=== PATIENT | female | born 2000 | race Two or more races ===

== ENCOUNTER 2023-03-20 10:40 | Emergency (ER) | payer OTHER ==
[~2023-03-20] VITALS: Ht 147.3 cm; Wt 101.2 kg
[2023-03-20 12:08] LABS: HEMATOCRIT 41.1 % (36.0-45.00); HEMOGLOBIN 13.4 g/dL (12.0-15.00); MEAN CORPUSCULAR HEMOGLOBIN 29.4 pg (27.00-32.0); MEAN CORPUSCULAR HGB CONC 32.6 g/dl (32.0-36.0); PLATELET COUNT 225 K/uL (150-450); RED BLOOD COUNT 4.57 M/uL (4.00-6.00); RED CELL DISTRIBUTION WIDTH 15.1 % (11.5-14.5)
[2023-03-20 12:35] LABS: ALBUMIN 3.3 gm/dL (3.4-5.0); BILIRUBIN TOTAL 0.31 mg/dL (0.3-1.2); CALCIUM 9.3 mg/dL (8.5-10.1); CREATININE SERUM 0.74 mg/dL (0.55-1.02); GFR 98.14; GLOBULINA 4.3 G/DL (2.4-3.5); POTASSIUM 4.03 mEq/L (3.5-5.1); TOTAL PROTEIN 7.6 gm/dL (6.4-8.2)
== END 2023-03-20 13:59 | disposition home or self-care (01) ==
LOC: ER 10:40
PROVIDERS: General Practice
DX: K80.20 Calculus of gallbladder without cholecystitis without obstruction (principal)

== ENCOUNTER 2023-05-14 18:05 | Emergency (ER) | payer OTHER ==
[~2023-05-14] VITALS: Ht 147.3 cm; Wt 99.8 kg
[2023-05-14 19:57] LABS: HEMATOCRIT 39.5 % (36.0-45.00); HEMOGLOBIN 13.6 g/dL (12.0-15.00); MEAN CORPUSCULAR HEMOGLOBIN 31.3 pg (27.00-32.0); MEAN CORPUSCULAR HGB CONC 34.4 g/dl (32.0-36.0); PLATELET COUNT 231 K/uL (150-450); RED BLOOD COUNT 4.34 M/uL (4.00-6.00); RED CELL DISTRIBUTION WIDTH 14.6 % (11.5-14.5)
[2023-05-14 21:22] LABS: PH,URINE 5.5 (5.0-8.0); URINE APPEARANCE Cloudy; URINE BILIRRUBIN Negative (NEGATIVE); URINE BLOOD Large; URINE COLOR Orange; URINE GLUCOSE Negative (NEGATIVE); URINE LEUKOCYTE Trace; URINE NITRATE Negative
[2023-05-14 21:23] LABS: URINE EPITHELIAL CELLS 26.4 uL (0.0-38.8); URINE RBC 5716.4 uL (0.0-20.8); URINE WBC 54.8 uL (0.0-23.2)
[2023-05-14 21:24] LABS: URINE PROTEIN 100 (NEGATIVE)
[2023-05-14] MEDS ORDERED: BACTRIM DS TAB1 EACH PO (21:42)
== END 2023-05-14 21:55 | disposition home or self-care (01) ==
LOC: ER 18:06
PROVIDERS: Nurse Practitioner Family
DX: N39.0 Urinary tract infection, site not specified (principal); R10.2 Pelvic and perineal pain

== ENCOUNTER 2023-07-26 21:14 | Emergency (ER) | payer OTHER ==
[~2023-07-26] VITALS: Ht 147.3 cm; Wt 98.4 kg
[~2023-07-26 21:14] MED LIST: BACTRIM DS TAB1 EACH PO
[2023-07-26] MEDS ORDERED: 0.9 % SODIUM CHLORIDE 1,000 ML IV ONE (23:00)
[2023-07-26] MEDS ORDERED: HYOSCYAMINE SULFATE 0.125 MG TAB.SUBL SL ONE (23:00)
[2023-07-26] MEDS ORDERED: FAMOTIDINE/PF 20 MG/2 ML VIAL IV PUSH ONE (23:00)
[2023-07-26] MEDS ORDERED: KETOROLAC TROMETHAMINE 30 MG VIAL IV ONE (23:00)
[2023-07-27 00:16] LABS: PH,URINE 5.5 (5.0-8.0); URINE APPEARANCE Clear; URINE BILIRRUBIN Small (NEGATIVE); URINE BLOOD Negative; URINE COLOR Dark Yellow; URINE GLUCOSE Negative (NEGATIVE); URINE LEUKOCYTE Negative; URINE NITRATE Negative; URINE PROTEIN 30 (NEGATIVE); URINE UROBILINOGEN 0.2 E.U./dl
[2023-07-27 00:17] LABS: URINE BACTERIA 41.5 uL (0.0-1933); URINE EPITHELIAL CELLS 15.2 uL (0.0-38.8); URINE RBC 11.2 uL (0.0-20.8)
[2023-07-27 00:54] LABS: HEMOGLOBIN 13.9 g/dL (12.0-15.00); MEAN CELL VOLUME 87.1 fL (80.00-100.00); MEAN CORPUSCULAR HEMOGLOBIN 29.4 pg (27.00-32.0); MEAN CORPUSCULAR HGB CONC 33.8 g/dl (32.0-36.0); PLATELET COUNT 177 K/uL (150-450); RED BLOOD COUNT 4.71 M/uL (4.00-6.00); RED CELL DISTRIBUTION WIDTH 14.5 % (11.5-14.5)
[2023-07-27 01:25] LABS: ALBUMIN 3.8 gm/dL (3.4-5.0); BILIRUBIN TOTAL 0.5 mg/dL (0.3-1.2); CALCIUM 8.9 mg/dL (8.5-10.1); CREATININE SERUM 0.65 mg/dL (0.55-1.02); GFR 113.98; GLOBULINA 3.9 G/DL (2.4-3.5); POTASSIUM 4.13 mEq/L (3.5-5.1); TOTAL PROTEIN 7.7 gm/dL (6.4-8.2)
== END 2023-07-27 05:19 | disposition home or self-care (01) ==
LOC: ER 21:14
PROVIDERS: General Practice
DX: K29.70 Gastritis, unspecified, without bleeding (principal); K80.20 Calculus of gallbladder without cholecystitis without obstruction

== ENCOUNTER → 2024-01-12 10:29 | Outpatient (CLI) | payer OTHER ==
[~2024-01-12 10:29] MED LIST changes: +IVERMECTIN3 MG PO; +OSEL75CA PO; +TUSNEL LIQUID178 ML PO
== END | disposition home or self-care (01) ==
LOC: PRENATAL 10:29
PROVIDERS: ATTEND Obstetrics & Gynecology Maternal & Fetal Medicine
DX: O35.9XX0 Maternal care for (suspected) fetal abnormality and damage, unspecified, not applicable or unspecified (principal); O35.3XX0 Maternal care for (suspected) damage to fetus from viral disease in mother, not applicable or unspecified; O44.02 Complete placenta previa NOS or without hemorrhage, second trimester; O99.213 Obesity complicating pregnancy, third trimester; Z3A.24 24 weeks gestation of pregnancy

== ENCOUNTER 2024-03-09 12:23 | Outpatient (CLI) | payer OTHER ==
[~2024-03-09] VITALS: Ht 147.3 cm; Wt 102.5 kg
[2024-03-09 11:22] VITALS: BP 116/77
[2024-03-09] MEDS ORDERED: PRENATAL CAPLE1 EAC1 PO (12:25)
[2024-03-09] MEDS ORDERED: FOLIC ACID20 MG PO (12:25)
[2024-03-09 13:03] LABS: PH,URINE 6.5 (5.0-8.0); URINE APPEARANCE Clear; URINE BILIRRUBIN Negative (NEGATIVE); URINE BLOOD Negative; URINE COLOR Yellow; URINE GLUCOSE Negative (NEGATIVE); URINE KETONE Negative (NEGATIVE); URINE LEUKOCYTE Negative; URINE NITRATE Negative; URINE PROTEIN Negative (NEGATIVE); URINE UROBILINOGEN 0.2 E.U./dl
[2024-03-09 13:07] LABS: URINE BACTERIA 3004.9 uL (0.0-1933); URINE EPITHELIAL CELLS 53.3 uL (0.0-38.8); URINE RBC 20.3 uL (0.0-20.8); URINE WBC 25.5 uL (0.0-23.2)
[2024-03-09 13:18] LABS: HEMATOCRIT 35.5 % (36.0-45.00); MEAN CELL VOLUME 86.7 fL (80.00-100.00); MEAN CORPUSCULAR HEMOGLOBIN 29.4 pg (27.00-32.0); MEAN CORPUSCULAR HGB CONC 33.9 g/dl (32.0-36.0); PLATELET COUNT 209 K/uL (150-450); RED BLOOD COUNT 4.09 M/uL (4.00-6.00); RED CELL DISTRIBUTION WIDTH 14.6 % (11.5-14.5)
[2024-03-09 13:20] LABS: URINE CAST 0.45 uL (0.0-1.40)
[2024-03-09 13:24] LABS: INR 0.99; PARTIAL THROMBOPLASTIN TIME 29.1 SECONDS (22.0-34.0); PROTHROMBIN TIME 10.8 SECONDS (9.0-11.5)
[2024-03-09] MEDS ORDERED: FAMOTIDINE/PF 20 MG/2 ML VIAL IV ONE (14:30)
[2024-03-09] MEDS ORDERED: RINGERS SOLUTION,LACTATED 1,000 ML IV SCH (15:15)
[2024-03-09 16:00] VITALS: BP 92/59
== END 2024-03-09 17:45 | disposition left against medical advice (07) ==
LOC: OBS/DEL 12:23
PROVIDERS: ATTEND Specialist
DX: O26.893 Other specified pregnancy related conditions, third trimester (principal); Z3A.33 33 weeks gestation of pregnancy; K29.60 Other gastritis without bleeding

== ENCOUNTER 2024-04-18 15:00 | Inpatient (IN) | payer OTHER ==
[~2024-04-18] VITALS: Ht 147.3 cm; Wt 3.2 kg
[~2024-04-18 15:00] MED LIST changes: +FOLIC ACID20 MG PO; +PRENATAL CAPLE1 EAC1 PO
[2024-04-27 05:29] VITALS: BP 126/70
[2024-04-27] MEDS ORDERED: PRENATAL TABLE1 EAC1 PO (06:10)
[2024-04-27] MEDS ORDERED: RINGERS SOLUTION,LACTATED 1,000 ML IV SCH (06:15)
[2024-04-27] MEDS ORDERED: OXYTOCIN 500 ML IV SCH (06:45)
[2024-04-27 06:55] LABS: HEMATOCRIT 35.6 % (36.0-45.00); MEAN CELL VOLUME 84.5 fL (80.00-100.00); MEAN CORPUSCULAR HEMOGLOBIN 28.4 pg (27.00-32.0); MEAN CORPUSCULAR HGB CONC 33.7 g/dl (32.0-36.0); PH,URINE 6.5 (5.0-8.0); PLATELET COUNT 234 K/uL (150-450); RED BLOOD COUNT 4.21 M/uL (4.00-6.00); RED CELL DISTRIBUTION WIDTH 15.2 % (11.5-14.5); URINE APPEARANCE Clear; URINE BILIRRUBIN Negative (NEGATIVE); URINE BLOOD Negative; URINE COLOR Yellow; URINE GLUCOSE Negative (NEGATIVE); URINE KETONE Negative (NEGATIVE); URINE LEUKOCYTE Negative; URINE NITRATE Negative; URINE PROTEIN Negative (NEGATIVE); URINE UROBILINOGEN 0.2 E.U./dl
[2024-04-27 06:57] LABS: URINE BACTERIA 325.5 uL (0.0-1933); URINE EPITHELIAL CELLS 13.6 uL (0.0-38.8); URINE WBC 10.7 uL (0.0-23.2)
[2024-04-27 07:02] LABS: URINE RBC 0.8 uL (0.0-20.8)
[2024-04-27 07:03] LABS: INR 0.96; PARTIAL THROMBOPLASTIN TIME 27.9 SECONDS (22.0-34.0); PROTHROMBIN TIME 10.5 SECONDS (9.0-11.5)
[2024-04-27 07:28] LABS: ALBUMIN 2.5 gm/dL (3.4-5.0); BILIRUBIN TOTAL 0.29 mg/dL (0.3-1.2); CALCIUM 8.9 mg/dL (8.5-10.1); CREATININE SERUM 0.6 mg/dL (0.55-1.02); GFR 123.88; GLOBULINA 3.9 G/DL (2.4-3.5); POTASSIUM 4.42 mEq/L (3.5-5.1); TOTAL PROTEIN 6.4 gm/dL (6.4-8.2)
[2024-04-27 07:53] VITALS: BP 141/54
[2024-04-27] MEDS ORDERED: PROMETHAZINE HCL 25 MG/ML AMPUL IV STA (08:07)
[2024-04-27] MEDS ORDERED: MEPERIDINE HCL/PF 50 MG/ML VIAL IV STA (08:07)
[2024-04-27 11:27] VITALS: BP 126/79
[2024-04-27] MEDS ORDERED: MORPHINE SULFATE 4 MG/ML VIAL IV ONE ×2 (16:05→16:35)
[2024-04-27] MEDS ORDERED: MEPERIDINE HCL 25 MG/ML AMPUL IV ONE (17:05)
[2024-04-27] MEDS ORDERED: MEPERIDINE HCL 50 MG/ML AMPUL IM ONE (17:35)
[2024-04-27] MEDS ORDERED: PROMETHAZINE HCL 50 MG/ML AMPUL IM ONE (17:35)
[2024-04-27] MEDS ORDERED: PROMETHAZINE HCL 50 MG/ML AMPUL IM PRN (17:45)
[2024-04-27] MEDS ORDERED: MEPERIDINE HCL/PF 50 MG/ML VIAL IM PRN (17:45)
[2024-04-27] MEDS ORDERED: CEFAZOLIN SODIUM 1,000 MG VIAL IV SCH (20:00)
[2024-04-28 01:50] VITALS: BP 116/79
[2024-04-28 02:22] LABS: HEMATOCRIT 34.4 % (36.0-45.00); MEAN CELL VOLUME 84.8 fL (80.00-100.00); MEAN CORPUSCULAR HGB CONC 33.5 g/dl (32.0-36.0); PLATELET COUNT 192 K/uL (150-450); RED BLOOD COUNT 4.06 M/uL (4.00-6.00); RED CELL DISTRIBUTION WIDTH 15.4 % (11.5-14.5)
[2024-04-28 02:26] LABS: HEMOGLOBIN 11.5 g/dL (12.0-15.00); MEAN CORPUSCULAR HEMOGLOBIN 28.3 pg (27.00-32.0)
[2024-04-28] MEDS ORDERED: OxyCODONE HCL/APAP UD (PERCOCET) PO PRN (06:45)
[2024-04-28] MEDS ORDERED: ACETAMINOPHEN 500 MG GEL..CAP PO PRN (06:45)
[2024-04-28 08:52] VITALS: BP 123/80
[2024-04-28 17:22] VITALS: BP 112/75
[2024-04-29 00:19] VITALS: BP 118/63
[2024-04-29] MEDS ORDERED: IBUPROFEN800 MG PO (09:23)
[2024-04-29 14:01] VITALS: BP 130/86
== END 2024-04-29 15:36 | disposition home or self-care (01) | DRG 788 ==
LOC: OB/GYN 04-27 05:17 → LDR 04-27 05:17 → O/R 04-27 15:02 → OB/GYN 04-27 15:52
PROVIDERS: ADMIT Specialist; ATTEND Specialist
PROC: 4A1HXCZ Monitoring of Products of Conception, Cardiac Rate, External Approach (ICD-10-PCS; 2024-04-27)
PROC: 10D00Z1 Extraction of Products of Conception, Low, Open Approach (ICD-10-PCS; principal; 2024-04-27 15:45)
DX: O82 Encounter for cesarean delivery without indication (principal); O62.0 Primary inadequate contractions; Z3A.40 40 weeks gestation of pregnancy; Z37.0 Single live birth; Z20.822 Contact with and (suspected) exposure to COVID-19

== ENCOUNTER 2024-04-25 16:39 | Outpatient (CLI) | payer OTHER | END 2024-04-25 16:56 | disposition home or self-care (01) | LOC: NST 16:39 | PROVIDERS: ATTEND Specialist | DX: Z34.83 Encounter for supervision of other normal pregnancy, third trimester (principal) ==

== ENCOUNTER 2024-05-03 23:53 | Emergency (ER) | payer OTHER ==
[~2024-05-03] VITALS: Ht 147.3 cm; Wt 96.6 kg
[~2024-05-03 23:53] MED LIST changes: +IBUPROFEN800 MG PO; +PRENATAL TABLE1 EAC1 PO
[2024-05-03 23:58] VITALS: BP 104/73; O2SAT 97
[2024-05-03] MEDS ORDERED: MOTRIN IB200 MG (23:59)
[2024-05-04] MEDS ORDERED: CEFTRIAXONE SODIUM 1,000 MG VIAL IV STA (01:48)
[2024-05-04] MEDS ORDERED: 0.9 % SODIUM CHLORIDE 1,000 ML IV ONE (02:00)
[2024-05-04 02:44] LABS: HEMATOCRIT 28.1 % (36.0-45.00); HEMOGLOBIN 9.3 g/dL (12.0-15.00); MEAN CELL VOLUME 84.6 fL (80.00-100.00); MEAN CORPUSCULAR HEMOGLOBIN 27.9 pg (27.00-32.0); PLATELET COUNT 334 K/uL (150-450); RED BLOOD COUNT 3.32 M/uL (4.00-6.00); RED CELL DISTRIBUTION WIDTH 15.7 % (11.5-14.5)
[2024-05-04 03:14] LABS: PARTIAL THROMBOPLASTIN TIME 22.4 SECONDS (22.0-34.0); PROTHROMBIN TIME 10.9 SECONDS (9.0-11.5)
[2024-05-04 03:20] LABS: ALBUMIN 1.9 gm/dL (3.4-5.0); BILIRUBIN TOTAL 0.23 mg/dL (0.3-1.2); CALCIUM 8.4 mg/dL (8.5-10.1); CREATININE SERUM 0.69 mg/dL (0.55-1.02); GFR 105.43; GLOBULINA 4.7 G/DL (2.4-3.5); POTASSIUM 3.56 mEq/L (3.5-5.1); TOTAL PROTEIN 6.6 gm/dL (6.4-8.2)
[2024-05-04 04:18] LABS: URINE APPEARANCE Cloudy; URINE BILIRRUBIN Negative (NEGATIVE); URINE BLOOD Large; URINE COLOR Yellow; URINE GLUCOSE Negative (NEGATIVE); URINE KETONE Negative (NEGATIVE); URINE LEUKOCYTE Large; URINE NITRATE Negative; URINE PROTEIN 30 (NEGATIVE)
[2024-05-04 04:22] LABS: URINE BACTERIA 1854.2 uL (0.0-1933); URINE EPITHELIAL CELLS 4.1 uL (0.0-38.8); URINE RBC 231.4 uL (0.0-20.8); URINE WBC 872.6 uL (0.0-23.2)
== END 2024-05-04 11:50 | disposition home or self-care (01) ==
LOC: ER 23:55
PROVIDERS: General Practice
DX: T81.41XA Infection following a procedure, superficial incisional surgical site, initial encounter (principal)